=== PATIENT | female | born 1950 | race Caucasian/White ===

== ENCOUNTER 2017-06-10 17:44 | Emergency (ER) | payer MEDICARE, OTHER ==
[2017-06-10] MEDS ORDERED: ACETAMINOPHEN 325 MG TABLET PO STA (18:09)
--- NOTE | 2017-06-10 18:12 | ED Physician Documentation ---
PD HPI LOWER EXT INJURY - Stated complaint Stated Complaint: GLF - Chief complaint Chief Complaint: Ext Problem - History obtained from History obtained from: Patient, Family - History of Present Illness PD HPI LOW EXT INJURY LOCATION: Other (She was up a few steps on a step stool, twisted to her right and felt to her right and felt a pop in her left knee and has hip and knee pain. No other injuries. No head or neck injury. She is unable to walk or bear weight.) Review of Systems Ten Systems: 10 systems reviewed and negative Constitutional: reports: Reviewed and negative Throat: reports: Reviewed and negative Cardiac: reports: Reviewed and negative Respiratory: reports: Reviewed and negative PD PAST MEDICAL HISTORY - Past Medical History Cardiovascular: None Respiratory: None Neuro: None Endocrine/Autoimmune: None GI: None PACKING LINE WORKER: None : None HEENT: None Psych: None Musculoskeletal: Osteoarthritis Derm: None - Past Surgical History Past Surgical History: Yes General: Cholecystectomy Ortho: Other /PACKING LINE WORKER: Hysterectomy Derm: Other - Present Medications Home Medications: Ambulatory Orders Medication Instructions Recorded Confirmed Omeprazole [Prilosec] 20 mg ORAL DAILY 06/14/15 06/10/17 Aspirin [Aspirin EC] 1 tab PO DAILY 06/10/17 06/10/17 HYDROcod/ACETAM 5/325 [[place] 5/325] 1 - 2 ea PO Q6H PRN #15 tablet 06/10/17 - Allergies Allergies/Adverse Reactions: Allergies Allergy/AdvReac Type Severity Reaction Status Date / Time acetaminophen [From Percocet] AdvReac Intermediate Nausea Verified 06/10/17 17: 54 oxycodone HCl * AdvReac Intermediate Nausea Verified 06/10/17 17:54 [From Percocet] - Living Situation Living Situation: reports: With spouse/s.o. - Social History Does the pt smoke?: No Smoking Status: Never smoker Does the pt drink ETOH?: Yes Does the pt have substance abuse?: No - Family History Family history: reports: Non contributory - Immunizations Immunizations are current?: Yes - POLST Patient has POLST: Yes PD ED PE NORMAL - Vitals Vital signs reviewed: Yes - General General: Alert and oriented X 3, No acute distress - HEENT HEENT: PERRL, EOMI - Neck Neck: Supple, no meningeal sign, No bony TTP - Cardiac Cardiac: RRR, No murmur - Respiratory Respiratory: No respiratory distress, Clear bilaterally - Abdomen Abdomen: Soft, Non tender - Back Back: No CVA TTP, No spinal TTP - Derm Derm: Normal color, Warm and dry - Extremities Extremities: Other (Left lower extremity is mildly tender to the lateral part of the hip and she has pain with external rotation but not internal rotation. She points to the lateral hip, not the inguinal ligament as the site of the pain. No focal knee tenderness on the left and no effusion but she does have a lot of knee pain with grind testing and ACL testing.) - Neuro Neuro: Alert and oriented X 3, Normal speech - Psych Psych: Normal mood, Normal affect Results - Vitals Vitals: Vital Signs - 24 hr 06/10/17 06/10/17 17:48 19:51 Temperature 36.6 C Heart Rate 59 L 51 L Respiratory 16 16 Rate Blood Pressure 155/88 H 121/68 O2 Saturation 100 94 Oxygen O2 Source Room air - Rads (name of study) Xrays L hip and knee Radiology: EMP read contemporaneously (negative) PD MEDICAL DECISION MAKING - ED course ED course: 66-year-old woman with hip and knee pain after a fall, somewhat inconsistent with a hip fracture, x-rays were negative, but given persistent pain this was followed with a CT which was also negative. She was able to walk and bear weight with a walker. Departure - Departure Disposition: 01 Home, Self Care Clinical Impression: Left knee sprain Qualifiers: Encounter type: initial encounter Involved ligament of knee: unspecified ligament Qualified Code(s): S83.92XA - Sprain of unspecified site of left knee, initial encounter Sprain of left hip Qualifiers: Encounter type: initial encounter Qualified Code(s): S73.102A - Unspecified sprain of left hip, initial encounter Condition: Good Record reviewed to determine appropriate education?: Yes Instructions: ED Meniscal Injury Knee Poss Prescriptions: HYDROcod/ACETAM 5/325 [[place] 5/325] 1 - 2 ea PO Q6H PRN #15 tablet PRN Reason: Pain Comments: Recheck with your physician within a week if still hurting, consider other advanced imaging or repeat x-rays if not improved. Do not drink or drive while taking narcotic pain medication. Note that many narcotic pain relievers also contain Tylenol/acetaminophen. Please ensure that your total dose of acetaminophen from all sources does not exceed 3 g (3000 mg) per day. You may get constipated while on this medication. Take a stool softener such as Colace twice a day while you are on it. Also add an [id number]-ylf-[id number] laxative such as senna or MiraLAX on any day that you do not have a bowel movement. If you received a narcotic pain medication or sedative while in the emergency department, do not drive for the next 24 hours. Your blood pressure was elevated today on check into the emergency department. This does not mean that you have hypertension, it is a common phenomenon to come to the emergency department and have elevated blood pressure. I recommend that she see her primary care physician within the week to have it rechecked when you are feeling better.
[2017-06-10] MEDS ORDERED: ACETAMINOPHEN 325 MG TABLET PO ONE (18:16)
[2017-06-10] MEDS ORDERED: HYDROmorphone 1 MG/ML SYRINGE IM STA (19:05)
[2017-06-10] MEDS ORDERED: HYDROmorphone 1 MG/ML SYRINGE ONE (19:15)
--- NOTE | 2017-06-10 19:16 | XRAY Preliminary Report ---
Exam: XR Knee 4 View LT IMPRESSION: 1. No evidence for acute fracture. 2. Minimal knee joint effusion. 3. There appears to be medial knee and lower leg soft tissue varices. [facility] SITE ID: [id number]
--- NOTE | 2017-06-10 19:18 | XRAY Preliminary Report ---
Exam: XR Hip w/Pelvis 2-3V LT IMPRESSION: 1. No evidence for acute fracture 2. Bilateral hips appear within normal limits. No dislocation. See above. [facility] SITE ID: [id number]
--- NOTE | 2017-06-10 19:18 | XRAY Report ---
EXAM: LEFT KNEE RADIOGRAPHY EXAM DATE: 06/10/2017 06:44 PM. CLINICAL HISTORY: Left hip and knee pain after fall COMPARISON: None. TECHNIQUE: 4 views. FINDINGS: Bones: Normal. No fractures or bone lesions. Joints: No subluxation or significant degenerative joint disease. Minimal knee joint effusion. Soft Tissues: There appears to be medial knee and lower leg soft tissue varices. IMPRESSION: 1. No evidence for acute fracture. 2. Minimal knee joint effusion. 3. There appears to be medial knee and lower leg soft tissue varices. [facility] Referring Provider Line: [phone] SITE ID: [id number]
--- NOTE | 2017-06-10 19:21 | XRAY Report ---
EXAM: LEFT HIP AND PELVIS RADIOGRAPHY EXAM DATE: 06/10/2017 06:44 PM. HISTORY: Hip/knee pain after fall COMPARISONS: None. TECHNIQUE: 1 view of the pelvis and 1 view of the hip. FINDINGS: Bones: Normal. No fracture or bone lesion. Joints: Bilateral hips appear within normal limits. No dislocation. Pubic osteitis suspected. Degener ative changes in the lower lumbar spine. Soft Tissues: Unremarkable. IMPRESSION: 1. No evidence for acute fracture 2. Bilateral hips appear within normal limits. No dislocation. See above. [facility] Referring Provider Line: [phone] SITE ID: [id number]
[2017-06-10 19:53] VITALS: BP 121/68
--- NOTE | 2017-06-10 20:56 | CT Preliminary Report ---
Exam: CT Lower Extremity Left W/O IMPRESSION: 1. No evidence of left hip fracture or destructive bone lesion. 2. Mild degenerative changes. [facility] SITE ID: [id number]
--- NOTE | 2017-06-10 20:58 | CT Report ---
EXAM: LEFT HIP CT WITHOUT CONTRAST EXAM DATE: 06/10/2017 08:16 PM. CLINICAL HISTORY: Hip pain despite neg xrays. COMPARISON: 06/10/2017 radiographs. TECHNIQUE: Thin-section axial images were acquired of the hip without contrast. Post-processing: [place] and sagittal reformats. Other: None. In accordance with CT protocol optimization, one or more of the following dose reduction techniques w ere utilized for this exam: automated exposure control, adjustment of mA and/or KV based on patient s ize, or use of iterative reconstructive technique. FINDINGS: Bones: No fracture or bone lesion. Joints: Mild joint space narrowing posteriorly. There is minimal spurring along the margins of the fe moral head. No loose bodies. No joint effusion. Normal alignment. Pubic symphyseal degenerative stephens es. Musculature: Normal. No fatty atrophy. Other: The visualized intraperitoneal structures are unremarkable. IMPRESSION: 1. No evidence of left hip fracture or destructive bone lesion. 2. Mild degenerative changes. [facility] Referring Provider Line: [phone] SITE ID: [id number]
[2017-06-10] MEDS ORDERED: HYDROcod/ACET 5/325 Prepack 6 PO STA (21:00)
[2017-06-10] MEDS ORDERED: HYDROcod/ACET 5/325 Prepack 6 PO ONE (21:07)
== END 2017-06-10 21:26 | disposition home or self-care (01) ==
LOC: ED 17:44
DX: S83.92XA Sprain of unspecified site of left knee, initial encounter (principal); S73.102A Unspecified sprain of left hip, initial encounter; W11.XXXA Fall on and from ladder, initial encounter; X50.9XXA Other and unspecified overexertion or strenuous movements or postures, initial encounter; Y93.89 Activity, other specified; R03.0 Elevated blood-pressure reading, without diagnosis of hypertension
CPT/HCPCS: 73502; 73564; 73700; 96372; 99283; A9270; J1170

== ENCOUNTER 2017-07-18 08:37 | Outpatient (CLI) | payer MEDICARE, OTHER ==
--- NOTE | 2017-07-19 12:35 | Mammography Report ---
DIGITAL SCREENING MAMMOGRAM: 07/18/2017 CLINICAL INDICATION: A 67-year-old for screening. COMPARISON: 06/2016, 04/2015, 03/2010 TECHNIQUE: Routine CC and MLO projections were obtained of the breasts. FINDINGS: Scattered fibroglandular tissue is present within the breasts. There are no dominant ayaka s, suspicious microcalcifications, or secondary signs of malignancy. In comparison to the previous st udies, there are no significant changes. ASSESSMENT: NO MAMMOGRAPHIC EVIDENCE OF MALIGNANCY. NO SIGNIFICANT INTERVAL CHANGES. RECOMMENDATION: Screening mammography is recommended annually. BIRADS category 1 - negative. STANDARD QUALIFYING STATEMENTS 1. This examination was reviewed with the aid of Computed-Aided Detection (CAD). 2. A negative or benign imaging report should not delay biopsy if clinically suspicious findings are present. Consider surgical consultation if warranted. More than 5% of cancers are not identified by i maging. 3. Dense breasts may obscure an underlying neoplasm. JOB #: [id number] EXT JOB #:[id number]
== END 2017-07-18 08:38 | disposition home or self-care (01) ==
LOC: DI.S 08:37
PROVIDERS: ATTEND Registered Nurse
DX: Z12.31 Encounter for screening mammogram for malignant neoplasm of breast (principal)
CPT/HCPCS: 77067

== ENCOUNTER 2017-11-01 09:28 | Outpatient (CLI) | payer MEDICARE, OTHER ==
--- NOTE | 2017-11-02 08:59 | Nuclear Medicine Report ---
EXAM: SINGLE-ISOTOPE EXERCISE STRESS TEST. SINGLE-ISOTOPE AND ONE-DAY REST/STRESS MYOCARDIAL PERFUSION SCAN S WITH TOMOGRAPHIC IMAGING, QUANTITATIVE ANALYSIS, WALL MOTION ANALYSIS AND CALCULATION OF EJECTION F RACTION. EXAM DATE: 11/01/2017 02:55 PM. CLINICAL HISTORY: FATIGUE, FAM HX OF CAD, PE. COMPARISON: None available. TECHNIQUE: A rest myocardial perfusion scan was done with tomography after the intravenous administration of 9.4 mCi Tc-99m sestamibi. After an appropriate delay, a treadmill exercise stress was performed according to department protoco l. The patient exercised for 7 minutes and 30 seconds. The maximum heart rate was 144 bpm, which was 95% of the maximum predicted heart rate of 151 bpm. At approximately peak heart rate, 42.4 mCi of Tc- 99m sestamibi was injected for stress myocardial perfusion scan. Motion correction was applied when a ppropriate. Gated tomographic images were obtained for wall motion analysis and computation of left ventricular e jection fraction. FINDINGS: No fixed or reversible perfusion defects are evident. Wall motion analysis demonstrates no focal wall motion abnormality The left ventricular end-diastolic volume is 65 cc. The left ventricular end-systolic volume is 21 cc . The left ventricular ejection fraction is calculated to be 67%. IMPRESSION: 1. No scintigraphic findings to indicate myocardial ischemia. Negative for infarct. 2. Normal left ventricular ejection fraction of 67%. 3. Normal segmental and global wall motion. 4. Normal left ventricular cavity size, no change with stress. [facility] Referring Provider Line: [phone] SITE ID: [id number]
--- NOTE | 2017-11-02 13:27 | CARDIAC PROCEDURE NOTE ---
DATE OF SERVICE: 11/01/2017 DATE OF PROCEDURE: 11/01/2017. PRIMARY CARE PROVIDER: JASMYNE Conde PROCEDURE: Myocardial perfusion treadmill. PROCEDURE SYMPTOMS: Fatigue and chest pain. CARDIAC RISK FACTORS include age and family history. No previous cardiac history. CURRENT SYMPTOMOTOLOGY: None. CLINICAL HISTORY: A 67-year-old female without known coronary artery disease. Initial resting vital signs: Blood pressure 144/82, heart rate 62, height 61 inches, weight 167 pounds, BMI 31.25. PROCEDURE AND FINDINGS: Patient identity and date verified, consent signed. The patient performed treadmill exercise using a Timothy protocol, completing 7 minutes 45 seconds, and completing an estimated workload of 7.6 metabolic equivalents. At peak exercise, a Cardiolite radioactive tracer was injected intravenously, and the patient continued to exercise at stage II for another minute. Maximal blood pressure was 176/70 with a heart rate of 144 beats per minute or 95% of maximum predicted heart rate for age. Blood pressure response to exercise was within normal limits. The patient stopped because she was tiring. The resting ECG demonstrated normal sinus rhythm with no abnormalities. Maximum ST segment depression was less than 0.5 mm and upsloping. Ectopy consisted of several seconds of unifocal PVCs in 1 couplet approximately 4 minutes into exercise. There was also a rare PAC. FINAL IMPRESSION 1. Negative stress electrocardiogram for ischemia by electrocardiographic criteria. 2. Negative stress test clinically for angina. 3. Several unifocal PVCs in 1 couplet 4 minutes into exercise. TD: 11/01/2017 20:38 [facility]
[2017-11-06 09:02] VITALS: BP 122/84
== END 2017-11-01 09:29 | disposition home or self-care (01) ==
LOC: DI 09:28
PROVIDERS: ATTEND Registered Nurse
DX: R53.83 Other fatigue (principal); I10 Essential (primary) hypertension; Z82.49 Family history of ischemic heart disease and other diseases of the circulatory system; I49.3 Ventricular premature depolarization
CPT/HCPCS: 78452; 93017; A9500

== ENCOUNTER 2019-04-16 10:01 | Outpatient (CLI) | payer MEDICARE, OTHER ==
--- NOTE | 2019-04-16 10:36 | XRAY Report ---
Reason: PT NO SHOWED APPT [id number] ([id number] CC) Procedure Date: 04/16/2019 Accession Number: [id number] / [id number] Procedure: XR - Hand 3 View BILAT CPT Code: FULL RESULT: EXAMS: 1. Right Hand Radiography 2. Left Hand Radiography EXAM DATE: 04/16/2019 10:13 AM. CLINICAL HISTORY: Bilateral hand pain COMPARISON: None. TECHNIQUE: 3 views each hand. FINDINGS: Right: Bones: Normal. No fractures or bone lesions. Joints: Mild-moderate carpal-first metacarpal joint osteoarthritis. Osteoarthritis of the third DIP joint. Soft Tissues: Normal. No soft tissue swelling. Left: Bones: Normal. No fractures or bone lesions. Joints: Moderately severe osteoarthritis of the carpal-first metacarpal joint with mild lateral subluxation of the first metatarsal. Soft Tissues: Normal. No soft tissue swelling. IMPRESSION: 1. No acute finding. 2. The primary finding is bilateral carpal-first metacarpal joint osteoarthritis, more severe in the left wrist. [facility]
== END 2019-04-16 10:02 | disposition home or self-care (01) ==
LOC: DI 10:01
PROVIDERS: ATTEND Nurse Practitioner Family
DX: M18.0 Bilateral primary osteoarthritis of first carpometacarpal joints (principal); M19.041 Primary osteoarthritis, right hand

== ENCOUNTER 2020-11-29 10:53 | Outpatient (CLI) | payer MEDICARE, OTHER ==
--- NOTE | 2020-11-29 14:27 | XRAY Report ---
PROCEDURE: Knee 2 View RT INDICATIONS: PAIN IN RIGHT KNEE TECHNIQUE: 3 views of the right knee(s) were acquired. COMPARISON: None. FINDINGS: Bones: No fractures or dislocations. Mild to moderate tricompartmental osteophyte is is seen more p rominent in medial femoral tibial compartment. No suspicious bony lesions. Soft tissues: Moderate suprapatellar joint effusion is seen. No suspicious soft tissue calcification s. IMPRESSION: Mild to moderate tricompartment osteoarthritis more prominent in medial femoral tibial c ompartment. Moderate suprapatellar joint effusion. No fracture or dislocation. Reviewed by: Andreas Herrera MD on 11/29/2020 2:25 PM PST Approved by: Andreas Herrera MD on 11/29/2020 2:25 PM PST Station ID: [id number]
== END 2020-11-29 10:54 | disposition home or self-care (01) ==
LOC: DI.S 10:53
PROVIDERS: ATTEND Registered Nurse
DX: M17.11 Unilateral primary osteoarthritis, right knee (principal)

== ENCOUNTER 2022-05-01 07:02 | Emergency (ER) | payer MEDICARE, OTHER ==
[2022-05-01 07:13] VITALS: BP 183/88
--- NOTE | 2022-05-01 07:33 | ED Physician Documentation ---
PD HPI ABD PAIN - Stated complaint Stated Complaint: UPPER ABD PX - Chief complaint Chief Complaint: Abd Pain - History obtained from History obtained from: Patient, Family - History of Present Illness Timing - onset: Today Timing - duration: Minutes (20) Timing - details: Abrupt onset Pain level max: 10 Pain level now: 0 Quality: Aching, Sharp, Pain Location: Epigastric Associated symptoms: No: Fever, Nausea, Vomiting, Hematemesis, Diarrhea, Constipation, Melena, Hematochezia, Dysuria, Hematuria, Chest pain Recently seen: Not recently seen - Additional information Additional information: Patient is a 71-year-old female with a history of gastroesophageal reflux. She states that she took her Prilosec this morning and then drank her coffee. After that she developed abdominal pain. Lasted for about 20 minutes and has since resolved. She currently feels normal now. It was nonradiating. No chest pain. No shortness of breath. Nothing made it better or worse. Feels similar to her prior episodes of reflux. Did not eat any food this morning Review of Systems Constitutional: denies: Fever, Chills Ears: denies: Ear pain Nose: denies: Rhinorrhea / runny nose, Congestion Throat: denies: Sore throat Cardiac: denies: Palpitations, Calf pain Respiratory: denies: Dyspnea, Cough GI: denies: Nausea, Vomiting, Diarrhea Skin: denies: Rash Musculoskeletal: denies: Neck pain, Back pain Neurologic: denies: Headache PD PAST MEDICAL HISTORY - Past Medical History Cardiovascular: None Respiratory: None Endocrine/Autoimmune: None GI: None HVAC JOURNEYMAN: None : None HEENT: None Psych: None Musculoskeletal: Osteoarthritis Derm: None - Past Surgical History Past Surgical History: Yes General: Cholecystectomy Ortho: Other /HVAC JOURNEYMAN: Hysterectomy Derm: Other - Present Medications Home Medications: Ambulatory Orders Medication Instructions Recorded Confirmed Omeprazole [Prilosec] 20 mg ORAL DAILY 06/14/15 05/01/22 Aspirin [Aspirin EC] 1 tab PO DAILY 06/10/17 05/01/22 HYDROcod/ACETAM 5/325 [[place] 5/325] 1 - 2 ea PO Q6H PRN #15 tablet 06/10/17 05/01/22 - Allergies Allergies/Adverse Reactions: Allergies Allergy/AdvReac Type Severity Reaction Status Date / Time acetaminophen [From Percocet] AdvReac Intermediate Nausea Verified 06/10/17 17:54 oxycodone HCl * AdvReac Intermediate Nausea Verified 06/10/17 17:54 [From Percocet] - Social History Does the pt smoke?: No Smoking Status: Never smoker Does the pt drink ETOH?: Yes Does the pt have substance abuse?: No - Immunizations Immunizations are current?: Yes - POLST Patient has POLST: Yes PD ED PE NORMAL - Vitals Vital signs reviewed: Yes - General General: Alert and oriented X 3, No acute distress, Well developed/nourished - HEENT HEENT: Moist mucous membranes - Neck Neck: Supple, no meningeal sign - Cardiac Cardiac: RRR - Respiratory Respiratory: No respiratory distress, Clear bilaterally - Abdomen Abdomen: Soft, Non tender, Non distended - Back Back: No CVA TTP, No spinal TTP - Derm Derm: Warm and dry - Extremities Extremities: No edema, No calf tenderness / cord - Neuro Neuro: Alert and oriented X 3 - Psych Psych: Normal mood, Normal affect Results - Vitals Vitals: Vital Signs - 24 hr 05/01/22 07:10 Temperature 36.8 C Heart Rate 65 Respiratory 18 Rate Blood Pressure 183/88 H O2 Saturation 99 Oxygen O2 Source Room air - EKG (time done) 0734 Rate: Rate (enter#) (55) Rhythm: NSR [place]: Normal Intervals: Normal RI QRS: Normal Ischemia: Normal ST segments - Labs Labs: Laboratory Tests 05/01/22 05/01/22 05/01/22 07:50 07:50 07:50 WBC 6.8 RBC 4.06 L Hgb 13.5 Hct 38.7 MCV 95.3 MCH 33.3 H MCHC 34.9 RDW 12.3 Plt Count 235 MPV 9.2 Neut # (Auto) 4.9 Lymph # (Auto) 1.3 L [place] # (Auto) 0.4 Eos # (Auto) 0.1 Baso # (Auto) 0.0 Absolute Nucleated RBC 0.00 Nucleated RBC % 0.0 Sodium 137 Potassium 3.9 Chloride 99 L Carbon Dioxide 29 Anion Gap 9.0 BUN 19 Creatinine 0.5 Estimated GFR (MDRD) 121 Glucose 127 H Calcium 9.1 Total Bilirubin 0.4 AST 62 H ALT 37 Alkaline Phosphatase 54 Troponin I High Sens 8.3 Total Protein 6.5 L Albumin 4.0 Globulin 2.5 Albumin/Globulin Ratio 1.6 Lipase 43 - Rads (name of study) chest xray Radiology: Final report received, EMP read contemporaneously, See rad report PD MEDICAL DECISION MAKING - ED course Complexity details: reviewed results, re-evaluated patient, considered differential (No ST elevation MS, no aortic dissection, no PE, no tension pneumothorax, no aortic aneurysm), d/w patient ED course: Patient with epigastric abdominal pain after drinking coffee on an empty stomach this morning. Resolved on its own. No evidence of acute coronary syndrome, pulmonary embolus, pneumothorax, hemothorax. Does have a sclerotic region in the right humeral head, she will follow-up with her doctor for this. No pain. We will continue her gastritis/GERD medication at home and have her follow-up with her doctor for further care. Patient fully asymptomatic throughout the emergency department stay. Patient counseled regarding signs and symptoms for which I believe and urgent re-evaluation would be necessary. Patient with good understanding of and agreement to plan and is comfortable going home at this time This document was made in part using voice recognition software. While efforts are made to proofread this document, sound alike and grammatical errors may occur. IMPRESSION: No acute pulmonary process. Sclerotic lesion within the right humeral head without priors available for comparison. Disc is suspicious for an chondroma. However, if there is a known primary malignancy, further evaluation with bone scan is recommended as metastatic disease cannot be excluded. Additionally, if pain is present within this region, further evaluation with bone scan or MRI is recomm ended. Otherwise, 3-6 month interval follow-up with shoulder x-rays are recommended. Departure - Departure Disposition: 01 Home, Self Care Clinical Impression: Abdominal pain Qualifiers: Abdominal location: epigastric Qualified Code(s): R10.13 - Epigastric pain Condition: Good Instructions: ED Abdominal Pain Female Non-Specific Abdominal Pain Follow-Up: Kelin Mcelroy ARNP [Primary Care Provider] - Within 1 week Comments: Please follow-up with your doctor for further care. Your x-ray, EKG and laboratory testing did not show any acute abnormalities today. There is a sclerotic lesion in your right humeral head, you should follow-up with your doctor for follow-up of this. The report is below. Take this with you to your doctor's appointment. IMPRESSION: No acute pulmonary process. Sclerotic lesion within the right humeral head without priors available for comparison. Disc is suspicious for an chondroma. However, if there is a known primary malignancy, further evaluation with bone scan is recommended as metastatic disease cannot be excluded. Additionally, if pain is present within this region, further evaluation with bone scan or MRI is recommended. Otherwise, 3-6 month interval follow-up with shoulder x-rays are recommended. Discharge Date/Time: 05/01/22 09:23
[2022-05-01 07:58] LABS: BASOPHILS % (AUTO) 0.6 %; EOSINOPHILS # (AUTO) 0.1 10^3/uL (0.0-0.7); EOSINOPHILS % (AUTO) 1.8 %; HCT - HEMATOCRIT 38.7 % (37.0-47.0); HGB - HEMOGLOBIN 13.5 g/dL (12.0-16.0); LYMPHOCYTES # (AUTO) 1.3 10^3/uL (1.5-3.5); LYMPHOCYTES % (AUTO) 18.6 %; MEAN CORPUSCULAR HEMOGLOBIN 33.3 pg (27.0-31.0); MEAN CORPUSCULAR HGB CONC 34.9 g/dL (32.0-36.0); MEAN CORPUSCULAR VOLUME 95.3 fL (81.0-99.0); MEAN PLATELET VOLUME 9.2 fL (7.9-10.8); MONOCYTES # (AUTO) 0.4 10^3/uL (0.0-1.0); MONOCYTES % (AUTO) 6.4 %; NEUTROPHILS # (AUTO) 4.9 10^3/uL (1.5-6.6); NEUTROPHILS % (AUTO) 72.3 %; PLT - PLATELET COUNT 235 10^3/uL (130-450); RED BLOOD COUNT 4.06 10^6/uL (4.20-5.40); RED CELL DISTRIBUTION WIDTH 12.3 % (12.0-15.0); WHITE BLOOD COUNT 6.8 x10^3/uL (4.8-10.8)
[2022-05-01 08:16] LABS: ALBUMIN/GLOBULIN RATIO 1.6 (1.0-2.2); BILIRUBIN,TOTAL 0.4 mg/dL (0.2-1.0); CALCIUM 9.1 mg/dL (8.5-10.3); CREATININE 0.5 mg/dL (0.4-1.0); POTASSIUM 3.9 mmol/L (3.5-5.0); TOTAL PROTEIN 6.5 g/dL (6.7-8.2)
--- NOTE | 2022-05-01 08:28 | XRAY Report ---
PROCEDURE: Chest 1 View X-Ray INDICATIONS: Chest Pain TECHNIQUE: One view of the chest was acquired. COMPARISON: None FINDINGS: Surgical changes and devices: None. Lungs and pleura: No pleural effusions or pneumothorax. Lungs are clear. Mediastinum: Mediastinal contours appear normal. Heart size is normal. Bones and chest wall: Sclerotic lesion is noted, within the partially visualized right humeral head. No priors are available for comparison. Overlying soft tissues appear unremarkable. IMPRESSION: No acute pulmonary process. Sclerotic lesion within the right humeral head without priors available for comparison. Disc is suspi cious for an chondroma. However, if there is a known primary malignancy, further evaluation with bone scan is recommended as metastatic disease cannot be excluded. Additionally, if pain is present withi n this region, further evaluation with bone scan or MRI is recommended. Otherwise, 3-6 month interval follow-up with shoulder x-rays are recommended. Reviewed by: Talya Albert MD on 05/01/2022 8:27 AM PDT Approved by: Talya Albert MD on 05/01/2022 8:27 AM PDT Station ID: [id number]
== END 2022-05-01 09:23 | disposition home or self-care (01) ==
LOC: ED 07:02
DX: R10.13 Epigastric pain (principal)
CPT/HCPCS: 36415; 80053; 83690; 84484; 85025; 93005; 99284

== ENCOUNTER → 2022-05-01 | Outpatient (CLI) | payer MEDICARE, OTHER | END | disposition EMS.NT | LOC: EMS 06:18 | DX: R10.84 Generalized abdominal pain (principal) ==

== ENCOUNTER 2022-06-07 08:41 | Outpatient (CLI) | payer MEDICARE, OTHER ==
--- NOTE | 2022-06-08 08:31 | Mammography Report ---
BILATERAL DIGITAL SCREENING MAMMOGRAM 3D/2D: 06/07/2022 CLINICAL: Routine screening. Family history of breast cancer. Comparison is made to exams dated: 07/18/2017 mammogram and 07/04/2016 mammogram - [facility]. There are scattered fibroglandular elements in both breasts. No significant masses, calcifications, or other findings are seen in either breast. There has been no significant interval change. IMPRESSION: NEGATIVE There is no mammographic evidence of malignancy. A 1 year screening mammogram is recommended. Based on the Tyrer Cuzick model (a risk assessment model) the patients lifetime risk is 5.0% and her 10 year risk is 4.2%. According to the ACR, ACS, and NCCN guidelines, an annual breast MRI exam bert g with mammogram is recommended if the patients lifetime risk is 20% or greater. This exam was interpreted at Station ID: [id number]. NOTE: For mammograms, a report in lay terms will be sent to the patient. Approximately 15% of breast malignancies will not be visualized mammographically. In the management of a palpable breast mass, a negative mammogram must not discourage biopsy of a clinically suspicious lesion. Electronically Signed By: Jamaal [email or web address]:06/07/2022 16:02:33 ACR BI-RADS Category 1: Negative 3341F B -Scattered fibroglandular 1 Mammogram [id number] 1 year screening B
== END 2022-06-07 08:42 | disposition home or self-care (01) ==
LOC: DI.S 08:41
PROVIDERS: ATTEND Registered Nurse
DX: Z12.31 Encounter for screening mammogram for malignant neoplasm of breast (principal); Z80.3 Family history of malignant neoplasm of breast

== ENCOUNTER 2022-09-05 07:16 | Inpatient (IN) | payer MEDICARE, OTHER ==
--- NOTE | 2022-09-05 07:22 | ED Physician Documentation ---
PD HPI NVD - Stated complaint Stated Complaint: N/V/D - History obtained from History obtained from: Patient - History of Present Illness Timing - onset: How many days ago (4) Timing - duration: Days (4) Timing - details: Abrupt onset, Still present Associated symptoms: Abdominal pain (intermittent cramping), Dizzy (lightheaded "whoozy" feeling the past day.), Loss of appetite. No: Fever, Near syncope / syncope Contributing factors: No: Sick contact, Bad food, Recent antibiotics, Alcohol use, Diabetes Improved by: No: Vomiting Worsened by: Eating Similar symptoms before: Has not had sx before Recently seen: Clinic (Seen at walk-in yesterday with prescription for Zofran and presumed viral gastroenteritis. Still vomiting despite these.) Review of Systems Constitutional: reports: Chills, Myalgias Nose: denies: Rhinorrhea / runny nose, Congestion Throat: denies: Sore throat Respiratory: denies: Cough GI: reports: Abdominal Pain (intermittent cramping.), Nausea, Vomiting, Diarrhea (for 2-3 days, not the past day) Neurologic: reports: Generalized weakness, Confused (feeling somewhat confused at times.). denies: Syncope, Head injury PD PAST MEDICAL HISTORY - Past Medical History Cardiovascular: None Respiratory: None Endocrine/Autoimmune: None GI: None PROCESSING REP: None : None HEENT: None Psych: None Musculoskeletal: Osteoarthritis Derm: None - Past Surgical History Past Surgical History: Yes General: Cholecystectomy Ortho: Other /PROCESSING REP: Hysterectomy Derm: Other - Present Medications Home Medications: Ambulatory Orders Medication Instructions Recorded Confirmed Omeprazole [Prilosec] 20 mg PO DAILY 06/14/15 09/05/22 Aspirin [Aspirin EC] 81 mg PO DAILY 06/10/17 09/05/22 Escitalopram [Lexapro] 10 mg PO DAILY 09/05/22 09/05/22 Ondansetron Odt [Zofran Odt] 4 mg SL Q8H PRN 09/05/22 09/05/22 hydroCHLOROthiazide [Hydrodiuril] 25 mg PO DAILY 09/05/22 09/05/22 - Allergies Allergies/Adverse Reactions: Allergies Allergy/AdvReac Type Severity Reaction Status Date / Time oxycodone HCl * AdvReac Intermediate Nausea Verified 06/10/17 17:54 [From Percocet] omeprazole [From Prilosec] AdvReac Nausea Verified 09/05/22 07:25 - Social History Does the pt smoke?: No Smoking Status: Never smoker Does the pt drink ETOH?: Yes Does the pt have substance abuse?: No - Immunizations Immunizations are current?: Yes - POLST Patient has POLST: Yes PD ED PE NORMAL - Vitals Vital signs reviewed: Yes - General General: Alert and oriented X 3, Well developed/nourished, Other (holding emesis bag) - HEENT HEENT: PERRL (nonicteric), Pharynx benign. No: Moist mucous membranes - Neck Neck: Supple, no meningeal sign, No adenopathy - Cardiac Cardiac: RRR, No murmur - Respiratory Respiratory: Clear bilaterally - Abdomen Abdomen: Soft, Non distended, No organomegaly, Other (no focal tenderness). No: Normal bowel sounds (diminished) - Back Back: No CVA TTP - Derm Derm: Normal color, Warm and dry - Extremities Extremities: No edema, No calf tenderness / cord - Neuro Neuro: Alert and oriented X 3, No motor deficit, Normal speech Eye Opening: Spontaneous Motor: Obeys Commands Verbal: Oriented GCS Score: 15 Results - Vitals Vitals: Vital Signs - 24 hr 09/05/22 09/05/22 09/05/22 07:26 09:27 11:00 Temperature 37.0 C 36.6 C Heart Rate 63 69 87 Respiratory 19 10 L 16 Rate Blood Pressure 154/80 H 166/87 H 135/85 H O2 Saturation 99 99 94 09/05/22 09/05/22 13:00 15:00 Temperature Heart Rate 57 L 60 Respiratory 16 12 Rate Blood Pressure 174/78 H 184/81 H O2 Saturation 98 99 Oxygen O2 Source Room air - Labs Labs: Laboratory Tests 09/05/22 09/05/22 09/05/22 07:56 07:56 09:15 WBC 5.0 RBC 4.51 Hgb 14.5 Hct 39.5 MCV 87.6 MCH 32.2 H MCHC 36.7 H RDW 11.3 L Plt Count 260 MPV 8.6 Neut # (Auto) 3.6 Lymph # (Auto) 0.8 L Towner # (Auto) 0.5 Eos # (Auto) 0.0 Baso # (Auto) 0.0 Absolute Nucleated RBC 0.00 Nucleated RBC % 0.0 Sodium 117 L* Potassium 3.0 L Chloride 82 L Carbon Dioxide 21 Anion Gap 14.0 H BUN 15 Creatinine 0.5 Estimated GFR (MDRD) 121 Glucose 105 H Calcium 8.8 Magnesium 1.7 Total Bilirubin 1.1 H AST 30 ALT 32 Alkaline Phosphatase 56 Total Protein 7.1 Albumin 4.4 Globulin 2.7 Albumin/Globulin Ratio 1.6 Lipase 40 Nasal Adenovirus (PCR) NOT DETECTED Nasal B. parapertussis DNA (PCR) NOT DETECTED Nasal Coronavir 229E PCR NOT DETECTED Nasal Coronavir HKU1 PCR NOT DETECTED Nasal Coronavir NL63 PCR NOT DETECTED Nasal Coronavir OC43 PCR NOT DETECTED Nasal Enterovir/Rhinovir PCR NOT DETECTED Nasal Influenza B PCR NOT DETECTED Nasal Influenza A PCR NOT DETECTED Nasal Parainfluen 1 PCR NOT DETECTED Nasal Parainfluen 2 PCR NOT DETECTED Nasal Parainfluen 3 PCR NOT DETECTED Nasal Parainfluen 4 PCR NOT DETECTED Nasal RSV (PCR) NOT DETECTED Nasal B.pertussis DNA PCR NOT DETECTED Nasal C.pneumoniae (PCR) NOT DETECTED Adrian Human Metapneumo PCR NOT DETECTED Nasal M.pneumoniae (PCR) NOT DETECTED Nasal SARS-CoV-2 (PCR) NOT DETECTED 09/05/22 09/05/22 13:00 17:08 WBC RBC Hgb Hct MCV MCH MCHC RDW Plt Count MPV Neut # (Auto) Lymph # (Auto) Towner # (Auto) Eos # (Auto) Baso # (Auto) Absolute Nucleated RBC Nucleated RBC % Sodium 119 L* 121 L Potassium 3.3 L 3.7 Chloride 86 L 91 L Carbon Dioxide 21 15 L Anion Gap 12.0 15.0 H BUN 10 9 Creatinine 0.4 0.5 Estimated GFR (MDRD) 156 121 Glucose 109 H 106 H Calcium 8.2 L 8.2 L Magnesium Total Bilirubin AST ALT Alkaline Phosphatase Total Protein Albumin Globulin Albumin/Globulin Ratio Lipase Nasal Adenovirus (PCR) Nasal B. parapertussis DNA (PCR) Nasal Coronavir 229E PCR Nasal Coronavir HKU1 PCR Nasal Coronavir NL63 PCR Nasal Coronavir OC43 PCR Nasal Enterovir/Rhinovir PCR Nasal Influenza B PCR Nasal Influenza A PCR Nasal Parainfluen 1 PCR Nasal Parainfluen 2 PCR Nasal Parainfluen 3 PCR Nasal Parainfluen 4 PCR Nasal RSV (PCR) Nasal B.pertussis DNA PCR Nasal C.pneumoniae (PCR) Adrian Human Metapneumo PCR Nasal M.pneumoniae (PCR) Nasal SARS-CoV-2 (PCR) PD MEDICAL DECISION MAKING - ED course Complexity details: reviewed results (Electrolytes are showing a low sodium of 117. Presume from the vomiting and diarrhea. This could account for some of her general weakness and lightheaded.), re-evaluated patient, considered differential (Does sound likely to be gastroenteritis. We can rehydrate with fluids and check electrolytes and blood count. No tenderness in the abdomen on exam at this point. I do not see indication for advanced imaging.), d/w patient, d/w salesforce consultant (Hospitalist) ED course: There was a prolonged stay in the emergency department due to lack of beds available. We awaited discharges until the afternoon. During the ER course, we maintained us slow infusion of normal saline. She did not have any further vomiting while here. Recheck of the electrolytes every 4 hours initially showed us to slowly increase which is appropriate. The patient was subsequently admitted to the hospital floor Departure - Departure Disposition: 66 [facility] DC/Xfer Clinical Impression: Nausea vomiting and diarrhea, Dehydration, Acute hyponatremia, Hypokalemia Condition: Stable Record reviewed to determine appropriate education?: Yes
[2022-09-05] MEDS ORDERED: SODIUM CHLORIDE 0.9% 1,000 ML IV STA ×2 (07:39→13:54)
[2022-09-05] MEDS ORDERED: PROCHLORPERAZINE 10 MG/2 ML VIAL IVP STA (07:39)
[2022-09-05] MEDS ORDERED: FAMOTIDINE 20 MG/2 ML VIAL IVP STA (07:39)
[2022-09-05] MEDS ORDERED: LACTATED RINGERS 1,000 ML IV STA ×2 (08:02→08:48)
[2022-09-05 08:03] LABS: BASOPHILS % (AUTO) 0.4 %; EOSINOPHILS % (AUTO) 0.2 %; HCT - HEMATOCRIT 39.5 % (37.0-47.0); HGB - HEMOGLOBIN 14.5 g/dL (12.0-16.0); LYMPHOCYTES # (AUTO) 0.8 10^3/uL (1.5-3.5); LYMPHOCYTES % (AUTO) 16.4 %; MEAN CORPUSCULAR HEMOGLOBIN 32.2 pg (27.0-31.0); MEAN CORPUSCULAR HGB CONC 36.7 g/dL (32.0-36.0); MEAN CORPUSCULAR VOLUME 87.6 fL (81.0-99.0); MEAN PLATELET VOLUME 8.6 fL (7.9-10.8); MONOCYTES # (AUTO) 0.5 10^3/uL (0.0-1.0); NEUTROPHILS # (AUTO) 3.6 10^3/uL (1.5-6.6); NEUTROPHILS % (AUTO) 72.6 %; PLT - PLATELET COUNT 260 10^3/uL (130-450); RED BLOOD COUNT 4.51 10^6/uL (4.20-5.40); RED CELL DISTRIBUTION WIDTH 11.3 % (12.0-15.0)
[2022-09-05 08:24] LABS: ALBUMIN 4.4 g/dL (3.2-5.5); ALBUMIN/GLOBULIN RATIO 1.6 (1.0-2.2); BILIRUBIN,TOTAL 1.1 mg/dL (0.2-1.0); CALCIUM 8.8 mg/dL (8.5-10.3); CREATININE 0.5 mg/dL (0.4-1.0); MAGNESIUM 1.7 mg/dL (1.7-2.8); TOTAL PROTEIN 7.1 g/dL (6.7-8.2)
[2022-09-05] MEDS ORDERED: POTASSIUM CHLOR 10 MEQ/100 ML 10 MEQ/100 ML BAG IV ONE (08:50)
[2022-09-05 10:21] LABS: B. PARAPERTUSSIS- RESP PCR PAN NOT DETECTED; B. PERTUSSIS- RESP PCR PANEL NOT DETECTED; C. PNEUMONIAE- RESP PCR PANEL NOT DETECTED; CORONAVIRUS 229E-RESP PCR NOT DETECTED; CORONAVIRUS HKU1-RESP PCR NOT DETECTED; CORONAVIRUS NL63-RESP PCR NOT DETECTED; CORONAVIRUS OC43-RESP PCR NOT DETECTED; HUMAN METAPNEUMOVIRUS NOT DETECTED; INFLUENZA A- RESP PCR PANEL NOT DETECTED; INFLUENZA B - RESP PCR PANEL NOT DETECTED; M. PNEUMONIAE- RESP PCR PANEL NOT DETECTED; PARAINFLUENZA VIRUS 1 NOT DETECTED; PARAINFLUENZA VIRUS 2 NOT DETECTED; PARAINFLUENZA VIRUS 3 NOT DETECTED; PARAINFLUENZA VIRUS 4 NOT DETECTED; RHINOVIRUS/ENTEROVIRUS NOT DETECTED; RSV- RESP PCR PANEL NOT DETECTED; SARS-CoV-2 -RESP PCR PANEL NOT DETECTED
[2022-09-05 13:28] LABS: CALCIUM 8.2 mg/dL (8.5-10.3); CREATININE 0.4 mg/dL (0.4-1.0); POTASSIUM 3.3 mmol/L (3.5-5.0)
[2022-09-05] MEDS ORDERED: ONDANSETRON 4 MG/2 ML VIAL IVP PRN (17:16)
[2022-09-05] MEDS ORDERED: PROCHLORPERAZINE 10 MG/2 ML VIAL IVP PRN (17:16)
[2022-09-05] MEDS ORDERED: SODIUM CHLORIDE FLUSH 0.9% 10 ML SYRINGE IVP PRN (17:16)
--- NOTE | 2022-09-05 17:26 | HISTORY & PHYSICAL EXAMINATION ---
History of Present Illness - Admitted From Admitted From:: ED - History Obtained From History obtained from: ED provider and the patient - History of Present Illness HPI Comment/Other: This is a 72-year-old white female with a history of HTN on HCTZ and GERD on Pepcid. Patient has had 4 days of nausea, vomiting and intermittent diarrhea w ith intermittent crampy abd pain. She denied a fever. She denied blood in her stool. She said that 2 of her friends had recent gastroenteritis. She went to a walk-in clinic yesterday and impression was that she had viral gastroenteritis. She was given a prescription for Zofran tablets. She had wo oziness and nausea with slight vomiting today, and continued diarrhea, she came to the ED. She is found to have a serum sodium of 117. She is Covid neg. She has no fever. Her blood pressure is normal. Her white blood count is normal. Her exam was not consistent with a surgical abdomen. She did not have abdominal imaging done in the ED. The ED provider has reached out to the Hospitalist service to have this patient admitted for further IV saline treatment, and there is now a bed open on the Inpt side. Since her first labs, her repeat sodium level has improved to 119 after receiving LR and iv saline. Her Code status is Full Code. History - Past Medical History Cardiovascular: reports: None Respiratory: reports: None Endocrine/Autoimmune: reports: None GI: reports: None ROLL UP OPERATOR: reports: None : reports: None HEENT: reports: None Psych: reports: None Musculoskeletal: reports: Osteoarthritis Derm: reports: None MRSA Hx?: No - Past Surgical History General: reports: Cholecystectomy Ortho: reports: Other /ROLL UP OPERATOR: reports: Hysterectomy Derm: reports: Other - Family & Social History Family History: Mother: (Mom of pancreatitis, father of heart disease), Father: Family History Comment/Other: Her sister has diabetes. She had 2 natural children, a son , her daughter's healthy. Living arrangement: At home Living Situation: With spouse/s.o. Social History Notes: She never smoked cigarettes. She drinks alcohol occaisionally (5-6 per week). Uses no illicit drugs. 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 She drives a car. - Substance History Use: Uses substance without health or social issues: NONE - POLST Patient has POLST: Yes Meds/Allgy - Home Medications Home Medications: Ambulatory Orders Medication Instructions Recorded Confirmed Omeprazole [Prilosec] 20 mg PO DAILY 06/14/15 09/05/22 Aspirin [Aspirin EC] 81 mg PO DAILY 06/10/17 09/05/22 Escitalopram [Lexapro] 10 mg PO DAILY 09/05/22 09/05/22 Ondansetron Odt [Zofran Odt] 4 mg SL Q8H PRN 09/05/22 09/05/22 hydroCHLOROthiazide [Hydrodiuril] 25 mg PO HS 09/05/22 09/05/22 - Allergies Allergies/Adverse Reactions: Allergies Allergy/AdvReac Type Severity Reaction Status Date / Time oxycodone HCl * AdvReac Intermediate Nausea Verified 06/10/17 17:54 [From Percocet] omeprazole [From Prilosec] AdvReac Nausea Verified 09/05/22 07:25 Review of Systems - Constitutional Constitutional: reports: Weakness, Poor appetite - Gastrointestinal Gastrointestinal: reports: Diarrhea, Nausea, Vomiting - Neurological Neurological: reports: Other (Wooziness) - All Other Systems All Other Systems: reports: Reviewed and negative Exam - Vital Signs Reviewed Vital Signs: Yes Vital Signs: Vital Signs x48h Temp Pulse Resp BP Pulse Ox 09/05/22 15:00 60 12 184/81 H 99 09/05/22 13:00 57 L 16 174/78 H 98 09/05/22 11:00 36.6 C 87 16 135/85 H 94 09/05/22 09:27 69 10 L 166/87 H 99 - Physical Exam General Appearance: positive: No acute distress, Alert (Slightly forgetful) Eyes Bilateral: positive: Normal inspection, EOMI ENT: positive: Dry mucous membranes Neck: positive: Nml inspection, Thyroid nml, No JVD Respiratory: positive: No respiratory distress, Breath sounds nml Cardiovascular: positive: Regular rate & rhythm, No murmur Abdomen: positive: Non-tender, Nml bowel sounds, No distention Skin: positive: Warm, Dry Extremities: positive: Non-tender, No pedal edema Neurologic/Psychiatric: positive: Oriented x3 (Non-focal.) Conclusion/Plan - Problem List (1) Acute hyponatremia Conclusion/Plan: She does have mild confusion/poor memory, when examined, and this may be due to her severely low serum Na. She received IV saline starting in the ED and sodium has increased from 117 up to 119 to 121 in 6 hours. Will continue with IV saline at 100 cc an hour. Follow serum sodium every 6 hours. Plan sodium correction slowly, about 6 mEq over the next 12 hours, to prevent complications. This was explained to the pt and her daughter, Caitlin, at bedside. (2) Hypokalemia Conclusion/Plan: Will replace with K riders. Follow BMP every [address] on telemetry. (3) Nausea vomiting and diarrhea Conclusion/Plan: This was felt to be viral gastroenteritis. Will continue with IV hydration. Continue with bowel rest, and her antiemetics as needed and antacids via IV form. Will eventually start clear liquids and advance as tolerated (4) Hx of essential hypertension Conclusion/Plan: Her med list says she is takes HCTZ. I told her this would not be given for the next 3 days because she currently is dehydrated and needs fluids and this may have added to her low sodium. We will order IV hydralazine as needed for HTN - Lab Results Fish Bones: 09/05/22 07:56 09/05/22 17:08 - Other Other Results/Comments: Attestation: The patient is expected to be discharged or transferred to another facility within 96 hours: Yes.
[2022-09-05 17:31] LABS: CALCIUM 8.2 mg/dL (8.5-10.3); CREATININE 0.5 mg/dL (0.4-1.0); POTASSIUM 3.7 mmol/L (3.5-5.0)
--- NOTE | 2022-09-05 18:42 | PHARMACY PROGRESS NOTE ---
- Best Possible Medication History Admit Date and Time: 09/05/22 1716 Processed by: Nursing Medication History completed: Yes Secondary Source(s): Physician records, Insurance records As the person ultimately responsible for medication therapy, providers are able to order a medication from an existing home medication list in [facility] via the "Reconcile Routine" prior to Confirmation of that medication by manager support services. Such practice is discouraged except when the physician, in their clinical judgment, deems that a medical need exists for a medication without regard to previous use.
[2022-09-05] MEDS: hydrALAZINE INJ 20 MG/ML VIAL IVP SCH (19:10)
[2022-09-05 19:35] LABS: CALCIUM 8.2 mg/dL (8.5-10.3); CREATININE 0.4 mg/dL (0.4-1.0); POTASSIUM 3.3 mmol/L (3.5-5.0)
[2022-09-05] MEDS: FAMOTIDINE 20 MG/2 ML VIAL IVP SCH (21:09)
[2022-09-05] MEDS: SODIUM CHLORIDE 0.9% 1,000 ML IV SCH (22:09)
[2022-09-05] MEDS: SODIUM CHLORIDE FLUSH 0.9% 10 ML SYRINGE IVP SCH (23:36)
[2022-09-06 01:33] LABS: CALCIUM 8.2 mg/dL (8.5-10.3); CREATININE 0.4 mg/dL (0.4-1.0)
[2022-09-06] MEDS: hydrALAZINE INJ 20 MG/ML VIAL IVP SCH ×3 (02:56→18:59)
[2022-09-06 07:12] LABS: CALCIUM 8.6 mg/dL (8.5-10.3); CREATININE 0.5 mg/dL (0.4-1.0); POTASSIUM 3.3 mmol/L (3.5-5.0)
[2022-09-06] MEDS: SODIUM CHLORIDE FLUSH 0.9% 10 ML SYRINGE IVP SCH ×2 (07:49→19:00)
[2022-09-06] MEDS: FAMOTIDINE 20 MG/2 ML VIAL IVP SCH ×2 (07:49→21:24)
[2022-09-06] MEDS: SODIUM CHLORIDE 0.9% 1,000 ML IV SCH ×2 (07:49→07:57)
[2022-09-06] MEDS ORDERED: POTASSIUM CHLORIDE 10 MEQ CAPSULE PO ONE (11:00)
[2022-09-06 13:23] LABS: CALCIUM 8.9 mg/dL (8.5-10.3); CREATININE 0.5 mg/dL (0.4-1.0); POTASSIUM 3.2 mmol/L (3.5-5.0)
--- NOTE | 2022-09-06 13:32 | PROVIDER PROGRESS NOTE ---
Assessment/Plan - Problem List (1) Acute hyponatremia Assessment/Plan: This was caused by 4 days of vomiting and diarrhea. It is improving on iv saline hydration. She did have mild confusion/poor memory, at admission when examined, and this may be due to that severely low serum Na. She is noticably more alert today and herself says she is not as "foggy". She received IV saline starting in the ED and overnight at 100 cc an hour. Serum sodium has increased from 117 up to 119 to 121 tpo 129 today. She is not orthostatic. Will continue with IV saline but decrease the rate to 40 cc/hr and try to advance her diet. Follow serum sodium every 6 hours>> 12 hours. (2) Hypokalemia Conclusion/Plan: Despite IV riders and p.o. replacement, her serum potassium remains low when rechecked. This suggests significant potassium loss in her vomiting and diarrhea Will replace with K riders and po. Follow BMP every 6 hours>> 12 hours. Monitor on telemetry. (3) Nausea vomiting and diarrhea Conclusion/Plan: This was felt to be viral gastroenteritis. It has improved with clear liquid diet and antiemetics. She has not needed an antiemetic in a day, but still has liquidy, non-painful diarrhea. Will continue with IV hydration. Will add Imodium prn. Will advance her clear liquid diet to pureed (4) Hx of essential hypertension Conclusion/Plan: She takes only HCTZ for BP control. I told her this would not be given for the next several days because she currently is dehydrated and needs fluids and this may have added to her low sodium. We have ordered IV hydralazine as needed for HTN I recommend that she be on a different blood pressure medication going forward, and she agrees. We will start a low-dose of Amlodipine probably tomorrow morning. - Current Meds Current Meds: Current Medications Generic Name Dose Route Start Last Admin Trade Name Freq PRN Reason Stop Dose Admin Famotidine 20 mg 09/05/22 21:00 09/06/22 07:49 Famotidine 20 Mg/2 Ml Vial IVP 20 mg BID RAQUEL Administration Hydralazine HCl 10 mg 09/05/22 19:00 09/06/22 11:08 Hydralazine Inj 20 Mg/Ml Vial IVP 10 mg Q8H RAQUEL Administration Sodium Chloride 1,000 mls @ 40 mls/hr 09/06/22 07:54 09/06/22 07:57 Normal Saline 0.9% IV Not Given .Q25H RAQUEL Sodium Chloride 10 ml 09/05/22 17:16 09/05/22 21:09 Sodium Chloride Flush 0.9% 10 Ml Syringe IVP 10 ml PRN PRN Administration NEEDED PER PROVIDER ORDERS Sodium Chloride 10 ml 09/06/22 01:00 09/06/22 07:49 Sodium Chloride Flush 0.9% 10 Ml Syringe IVP 10 ml 0100,0900,1700 [facility] Administration - Lab Result Fish Bone Diagrams: 09/05/22 07:56 09/06/22 13:08 - Additional Planning My Orders: My Active Orders 09/05/22 17:16 Telemetry- [RC] Q4HR Ondansetron Inj [Zofran Inj] 4 mg IVP Q6HR PRN Prochlorperazine Inj [Compazine Inj] 10 mg IVP Q6HR PRN Sodium Chloride Flush 0.9% [Normal Saline Flush 0.9%] 10 ml IVP PRN PRN 09/05/22 17:17 Activity Orders [RC] Q2HR IO [RC] IOSHIFT Initiate Bowel Care Protocol [RC] .protocol Initiate Line Care Protocol [RC] QSHIFT Initiate Personal Care Protoco [RC] .protocol Oxygen Therapy [RC] .PRN Vital Signs [RC] Q4HR Code Status [OTHERS] Routine Condition of Patient [OTHERS] Routine DVT Prophylaxis [OTHERS] Routine 09/05/22 17:18 Daily Weight [RC] 0600 SCDs [RC] QSHIFT 09/05/22 19:00 hydrALAZINE INJ [Apresoline Inj] 10 mg IVP Q8H 09/05/22 21:00 Famotidine [Pepcid] 20 mg IVP BID 09/06/22 01:00 Sodium Chloride Flush 0.9% [Normal Saline Flush 0.9%] 10 ml IVP 0100,0900,1700 09/06/22 Breakfast Clear Liquid Diet [DIET] 09/06/22 07:54 Sodium Chloride 0.9% [Normal Saline 0.9%] 1,000 ml IV 40 mls/hr 09/06/22 10:11 Orthostatic [Vital Signs - Orthostatic] [RC] DAILY 09/06/22 18:00 BMP - BASIC METABOLIC PANEL [CHEM] Q12H 09/07/22 06:00 BMP - BASIC METABOLIC PANEL [CHEM] Q12H 09/07/22 09:00 Aspirin EC [Ecotrin] 81 mg PO DAILY Escitalopram [Lexapro] 10 mg PO DAILY 09/07/22 18:00 BMP - BASIC METABOLIC PANEL [CHEM] Q12H 09/08/22 06:00 BMP - BASIC METABOLIC PANEL [CHEM] Q12H Subjective - Subjective Patient Reports: Feeling Better (No nausea and no vomiting. She is having diarrheal stools still.) Objective Vital Signs: Vital Signs - 24 hr 09/05/22 09/05/22 09/05/22 15:00 17:00 17:55 Temperature 36.5 C 36.9 C Heart Rate 60 66 Heart Rate [ 66 Brachial] Respiratory 12 16 16 Rate Blood Pressure 184/81 H 182/78 H Blood Pressure 169/75 H [Left Brachial artery] Blood Pressure [Right Brachial artery] O2 Saturation 99 96 96 09/05/22 09/05/22 09/05/22 19:10 19:15 19:20 Temperature Heart Rate Heart Rate [ 60 70 Brachial] Respiratory Rate Blood Pressure 174/78 H Blood Pressure 153/65 H 142/59 H [Left Brachial artery] Blood Pressure [Right Brachial artery] O2 Saturation 09/05/22 09/05/22 09/05/22 19:25 19:39 19:58 Temperature Heart Rate Heart Rate [ 65 88 81 Brachial] Respiratory Rate Blood Pressure Blood Pressure 151/63 H 130/89 H 158/65 H [Left Brachial artery] Blood Pressure [Right Brachial artery] O2 Saturation 09/05/22 09/05/22 09/06/22 20:15 20:30 00:24 Temperature 37.1 C 36.9 C Heart Rate Heart Rate [ 77 84 73 Brachial] Respiratory 20 18 Rate Blood Pressure Blood Pressure 155/74 H 156/71 H 149/75 H [Left Brachial artery] Blood Pressure [Right Brachial artery] O2 Saturation 96 09/06/22 09/06/22 09/06/22 02:56 03:02 03:07 Temperature Heart Rate Heart Rate [ 88 75 Brachial] Respiratory Rate Blood Pressure 153/80 H Blood Pressure 157/66 H 150/60 H [Left Brachial artery] Blood Pressure [Right Brachial artery] O2 Saturation 09/06/22 09/06/22 09/06/22 03:12 04:16 07:34 Temperature 37.1 C 36.9 C Heart Rate Heart Rate [ 76 73 65 Brachial] Respiratory 20 18 Rate Blood Pressure Blood Pressure 151/60 H 147/64 H 158/63 H [Left Brachial artery] Blood Pressure [Right Brachial artery] O2 Saturation 96 94 09/06/22 09/06/22 11:07 11:14 Temperature 36.9 C Heart Rate Heart Rate [ 60 59 L Brachial] Respiratory 18 Rate Blood Pressure Blood Pressure 149/65 H [Left Brachial artery] Blood Pressure 162/60 H [Right Brachial artery] O2 Saturation 96 Oxygen O2 Source Room air I&O (Last 24 Hrs): Intake and Output Totals x24h 09/04/22 09/05/22 09/06/22 23:59 23:59 23:59 Intake Total 3534.000 1206.667 Balance 3534.000 1206.667 General: Alert, Oriented x3 HEENT: Atraumatic, Mucous membr. moist/pink Neck: Supple, No JVD Neuro: Alert, Non Focal Cardiovascular: Regular rate, No murmurs Respiratory: No respiratory distress, Breath sounds nml Abdomen: Normal bowel sounds, Soft, No tenderness Extremities: No clubbing, No edema - Results Results: Laboratory Results WBC 5.0 x10^3/uL (4.8-10.8) 09/05/22 07:56 RBC 4.51 10^6/uL (4.20-5.40) 09/05/22 07:56 Hgb 14.5 g/dL (12.0-16.0) 09/05/22 07:56 Hct 39.5 % (37.0-47.0) 09/05/22 07:56 MCV 87.6 fL (81.0-99.0) 09/05/22 07:56 MCH 32.2 pg (27.0-31.0) H 09/05/22 07:56 MCHC 36.7 g/dL (32.0-36.0) H 09/05/22 07:56 RDW 11.3 % (12.0-15.0) L 09/05/22 07:56 Plt Count 260 10^3/uL (130-450) 09/05/22 07:56 MPV 8.6 fL (7.9-10.8) 09/05/22 07:56 Neut # (Auto) 3.6 10^3/uL (1.5-6.6) 09/05/22 07:56 Lymph # (Auto) 0.8 10^3/uL (1.5-3.5) L 09/05/22 07:56 [place] # (Auto) 0.5 10^3/uL (0.0-1.0) 09/05/22 07:56 Eos # (Auto) 0.0 10^3/uL (0.0-0.7) 09/05/22 07:56 Baso # (Auto) 0.0 10^3/uL (0.0-0.1) 09/05/22 07:56 Absolute Nucleated RBC 0.00 x10^3/uL 09/05/22 07:56 Nucleated RBC % 0.0 /100WBC 09/05/22 07:56 Sodium 129 mmol/L (135-145) L 09/06/22 13:08 Potassium 3.2 mmol/L (3.5-5.0) L 09/06/22 13:08 Chloride 97 mmol/L (101-111) L 09/06/22 13:08 Carbon Dioxide 22 mmol/L (21-32) 09/06/22 13:08 Anion Gap 10.0 (6-13) 09/06/22 13:08 BUN 8 mg/dL (6-20) 09/06/22 13:08 Creatinine 0.5 mg/dL (0.4-1.0) 09/06/22 13:08 Estimated GFR (MDRD) 121 (>89) 09/06/22 13:08 Glucose 103 mg/dL (70-100) H 09/06/22 13:08 Calcium 8.9 mg/dL (8.5-10.3) 09/06/22 13:08 Magnesium 1.7 mg/dL (1.7-2.8) 09/05/22 07:56 Total Bilirubin 1.1 mg/dL (0.2-1.0) H 09/05/22 07:56 AST 30 IU/L (10-42) 09/05/22 07:56 ALT 32 IU/L (10-60) 09/05/22 07:56 Alkaline Phosphatase 56 IU/L (42-121) 09/05/22 07:56 Total Protein 7.1 g/dL (6.7-8.2) 09/05/22 07:56 Albumin 4.4 g/dL (3.2-5.5) 09/05/22 07:56 Globulin 2.7 g/dL (2.1-4.2) 09/05/22 07:56 Albumin/Globulin Ratio 1.6 (1.0-2.2) 09/05/22 07:56 Lipase 40 U/L (22-51) 09/05/22 07:56 Nasal Adenovirus (PCR) NOT DETECTED 09/05/22 09:15 Nasal B. parapertussis DNA (PCR) NOT DETECTED 09/05/22 09:15 Nasal Coronavir 229E PCR NOT DETECTED 09/05/22 09:15 Nasal Coronavir HKU1 PCR NOT DETECTED 09/05/22 09:15 Nasal Coronavir NL63 PCR NOT DETECTED 09/05/22 09:15 Nasal Coronavir OC43 PCR NOT DETECTED 09/05/22 09:15 Nasal Enterovir/Rhinovir PCR NOT DETECTED 09/05/22 09:15 Nasal Influenza B PCR NOT DETECTED 09/05/22 09:15 Nasal Influenza A PCR NOT DETECTED 09/05/22 09:15 Nasal Parainfluen 1 PCR NOT DETECTED 09/05/22 09:15 Nasal Parainfluen 2 PCR NOT DETECTED 09/05/22 09:15 Nasal Parainfluen 3 PCR NOT DETECTED 09/05/22 09:15 Nasal Parainfluen 4 PCR NOT DETECTED 09/05/22 09:15 Nasal RSV (PCR) NOT DETECTED 09/05/22 09:15 Nasal B.pertussis DNA PCR NOT DETECTED 09/05/22 09:15 Nasal C.pneumoniae (PCR) NOT DETECTED 09/05/22 09:15 Adrian Human Metapneumo PCR NOT DETECTED 09/05/22 09:15 Nasal M.pneumoniae (PCR) NOT DETECTED 09/05/22 09:15 Nasal SARS-CoV-2 (PCR) NOT DETECTED 09/05/22 09:15
[2022-09-06] MEDS ORDERED: LOPERAMIDE 2 MG CAPSULE PO PRN (13:43)
[2022-09-06 18:07] LABS: CALCIUM 9.1 mg/dL (8.5-10.3); CREATININE 0.5 mg/dL (0.4-1.0); POTASSIUM 3.4 mmol/L (3.5-5.0)
[2022-09-07] MEDS: hydrALAZINE INJ 20 MG/ML VIAL IVP SCH (03:58)
[2022-09-07] MEDS: SODIUM CHLORIDE FLUSH 0.9% 10 ML SYRINGE IVP SCH ×2 (03:58→08:15)
[2022-09-07 06:39] LABS: CALCIUM 8.9 mg/dL (8.5-10.3); CREATININE 0.5 mg/dL (0.4-1.0); POTASSIUM 3.2 mmol/L (3.5-5.0)
[2022-09-07] MEDS: SODIUM CHLORIDE 0.9% 1,000 ML IV SCH (08:11)
[2022-09-07] MEDS: FAMOTIDINE 20 MG/2 ML VIAL IVP SCH (08:15)
[2022-09-07] MEDS ORDERED: POTASSIUM CHLOR 10 MEQ/100 ML 10 MEQ/100 ML BAG IV SCH (09:00)
[2022-09-07] MEDS ORDERED: POTASSIUM CHLORIDE 10 MEQ CAPSULE PO ONE (09:00)
[2022-09-07] MEDS ORDERED: amLODIPine 5 MG TABLET PO SCH (09:00)
[2022-09-07] MEDS ORDERED: ESCITALOPRAM 10 MG TABLET PO SCH (09:00)
[2022-09-07] MEDS ORDERED: ASPIRIN EC 81 MG TABLET PO SCH (09:00)
[2022-09-07 11:21] VITALS: BP 136/73
--- NOTE | 2022-09-07 11:54 | Discharge Plan ---
Discharge Plan Problem Reviewed?: Yes Disposition: Home, Self Care Condition: Fair Prescriptions: amLODIPine [Norvasc] 2.5 mg PO DAILY #30 tab Diet: Soft (please ADD salt to your food) Activity Restrictions: Activity as Tolerated Shower Restrictions: No Driving Restrictions: No Instruction Topics: Gastroenteritis Viral Ch Health Concerns: You were hospitalized because of nausea, vomiting and diarrhea that caused dehydration and a dangerously low serum sodium level. You needed IV saline to replace your sodium levels. You were put on a light diet. The sodium level has improved. You are being discharged today and advised to slowly advance your diet as tolerated. Please use salt liberally for the next 2-3 days. Your BP medicine HCTZ is felt to not be a good choice for treating your blood pressure. You have been started here on a new BP medication called Amlodipine and an electronic prescription for this was sent to your [facility] pharmacy in [place]. Plan of Treatment: As above. Care Goals: Improvement in symptoms and stabilization are the goals. Assessment: The patient understands and is agreeable with the plan. Additional Instructions or Follow Up instructions: You need to have a BMP blood test in about 3 days. Your PCP needs to order this, so that she can review the result. I have left a message with her office to order this. You should plan to see your primary care provider in the next 1 to 2 weeks for hospital follow-up visit. No Smoking: If you smoke, Please STOP! Call for help. Follow-up with: Kelin Mcelroy ARNP [Primary Care Provider] -
[2022-09-07 12:15] LABS: CALCIUM 9.2 mg/dL (8.5-10.3); CREATININE 0.5 mg/dL (0.4-1.0); POTASSIUM 3.6 mmol/L (3.5-5.0)
--- NOTE | 2022-09-07 13:33 | DISCHARGE SUMMARY ---
Discharge Summary Admit Date: 09/05/22 Discharge Date: 09/07/22 Discharging Provider: Karol Cortez MD Primary Care Provider: Chary Mcelroy NP Condition at Discharge: Fair Discharge Disposition: 01 Home, Self Care - HPI History of Present Illness: This is a 72-year-old white female with a history of HTN on HCTZ and GERD on Pepcid. Patient has had 4 days of nausea, vomiting and intermittent diarrhea with intermittent crampy abd pain. She denied a fever. She denied blood in her stool. She said that 2 of her friends had recent gastroenteritis. She went to a walk-in clinic yesterday with these complaints and impression was that she had viral gastroenteritis. She was given a prescription for Zofran tablets. She had new wooziness and nausea with slight vomiting today, and continued diarrhea, she came to the ED. She is found to have a serum sodium of 117. She is Covid neg. She has no fever. Her blood pressure is normal. Her white blood count is normal. Her exam was not consistent with a surgical abdomen. She did not have abdominal imaging done in the ED. The ED provider has reached out to the Hospitalist service to have this patient admitted for further IV saline treatment, and there is now a bed open on the Inpt side. Since her first labs, her repeat sodium level has improved to 119 after receiving LR and iv saline in the ED. Her Code status is Full Code. - HOSPITAL COURSE Hospital Course: (1) Hyponatremia This was caused by 4 days of vomiting and diarrhea. It improved with iv saline hydration. She did have mild confusion/poor memory, at admission when examined, and this was likely due to that severely low serum Na. She was noticably more alert and herself said she was not as "foggy". She received IV saline starting in the ED and overnight at 100 cc an hour. Serum sodium has increased from 117 up to 119 to 121 to 129 today. She was not orthostatic. We decreased the iv rate and tried to advance her diet. Her HCTZ was stopped. I called Kelin Mcelroy NP's office and gave a message that the pt ne eds a BMP in 4 days and an office appt in 1 week. (2) Hypokalemia She required multiple IV K riders and p.o. replacement. This suggested significant potassium loss in her vomiting and diarrhea (3) Nausea vomiting and diarrhea This was felt to be viral gastroenteritis. It improved with antiemetics and a clear liquid diet that was slowly advanced to pureed. A BRAT diet was still advised. (4) Hx of essential hypertension She took only HCTZ for BP control. This was stopped due to dehydration and needing iv fluid replacement. I recommend that she be on a different blood pressure medication going forward, and she agreed. She was started on a low-dose of Amlodipine and discharged on this. - ALLERGIES Allergies/Adverse Reactions: Allergies Allergy/AdvReac Type Severity Reaction Status Date / Time oxycodone HCl * AdvReac Intermediate Nausea Verified 06/10/17 17:54 [From Percocet] omeprazole [From Prilosec] AdvReac Nausea Verified 09/05/22 07:25 - MEDICATIONS Home Medications: Ambulatory Orders Medication Instructions Recorded Confirmed Omeprazole [Prilosec] 20 mg PO DAILY 06/14/15 09/05/22 Aspirin [Aspirin EC] 81 mg PO DAILY 06/10/17 09/05/22 Escitalopram [Lexapro] 10 mg PO DAILY 09/05/22 09/05/22 Ondansetron Odt [Zofran Odt] 4 mg SL Q8H PRN 09/05/22 09/05/22 amLODIPine [Norvasc] 2.5 mg PO DAILY #30 tab 09/07/22 - PHYSICAL EXAM AT DISCHARGE General Appearance: positive: No acute distress, Alert Eyes Bilateral: positive: Normal inspection, EOMI ENT: positive: ENT inspection nml, No signs of dehydration Neck: positive: Nml inspection, No JVD Respiratory: positive: No respiratory distress, Breath sounds nml Cardiovascular: positive: Regular rate & rhythm, No murmur Abdomen: positive: Non-tender, Nml bowel sounds, No distention Skin: positive: Warm, Dry Extremities: positive: Non-tender, No pedal edema Neurologic/Psychiatric: positive: Oriented x3, Motor nml - LABS Result Diagrams: 09/05/22 07:56 09/07/22 11:59 - FOLLOW UP Follow Up: On the day of discharge, I called Kelin Mcelroy NP's office, and gave a message to staff that the patient needs a BMP done in about 4 days and an office appt in 1 week. - TIME SPENT Time Spent in Discharge (Minutes): 45
== END 2022-09-07 14:21 | disposition home or self-care (01) | DRG 641 ==
LOC: ED 07:16 → MS2 17:16
PROVIDERS: ADMIT Internal Medicine; ATTEND Internal Medicine
DX: E87.1 Hypo-osmolality and hyponatremia (principal); E86.0 Dehydration; E87.6 Hypokalemia; R11.2 Nausea with vomiting, unspecified; R19.7 Diarrhea, unspecified; Z20.822 Contact with and (suspected) exposure to COVID-19; R42 Dizziness and giddiness; R53.1 Weakness; I10 Essential (primary) hypertension; K21.9 Gastro-esophageal reflux disease without esophagitis; R41.0 Disorientation, unspecified
CPT/HCPCS: 36415; 80048; 80053; 83690; 83735; 85025; 87633; 96361; 96374; 99284; 99285; A9270; J7120

== ENCOUNTER 2023-12-30 12:11 | Emergency (ER) | payer MEDICARE, OTHER ==
[2023-12-30 12:18] VITALS: BP 200/90; O2SAT 98
[2023-12-30 13:47] LABS: BASOPHILS # (AUTO) 0.1 10^3/uL (0.0-0.1); BASOPHILS % (AUTO) 0.9 %; EOSINOPHILS # (AUTO) 0.2 10^3/uL (0.0-0.7); EOSINOPHILS % (AUTO) 1.9 %; HCT - HEMATOCRIT 44.1 % (37.0-47.0); HGB - HEMOGLOBIN 14.5 g/dL (12.0-16.0); LYMPHOCYTES # (AUTO) 1.4 10^3/uL (1.5-3.5); LYMPHOCYTES % (AUTO) 18.4 %; MEAN CORPUSCULAR HEMOGLOBIN 31.7 pg (27.0-31.0); MEAN CORPUSCULAR HGB CONC 32.9 g/dL (32.0-36.0); MEAN CORPUSCULAR VOLUME 96.3 fL (81.0-99.0); MEAN PLATELET VOLUME 8.7 fL (7.9-10.8); MONOCYTES # (AUTO) 0.5 10^3/uL (0.0-1.0); NEUTROPHILS # (AUTO) 5.5 10^3/uL (1.5-6.6); NEUTROPHILS % (AUTO) 71.3 %; PLT - PLATELET COUNT 299 10^3/uL (130-450); RED BLOOD COUNT 4.58 10^6/uL (4.20-5.40); RED CELL DISTRIBUTION WIDTH 12.5 % (12.0-15.0); WHITE BLOOD COUNT 7.7 x10^3/uL (4.8-10.8)
[2023-12-30 14:01] LABS: ALBUMIN 4.4 g/dL (3.2-5.5); ALBUMIN/GLOBULIN RATIO 1.7 (1.0-2.2); BILIRUBIN,TOTAL 0.4 mg/dL (0.2-1.0); CALCIUM 9.8 mg/dL (8.5-10.3); CREATININE 0.7 mg/dL (0.6-1.3); POTASSIUM 4.2 mmol/L (3.5-4.5)
--- NOTE | 2023-12-30 14:31 | ED Physician Documentation ---
PD HPI ABD PAIN - Stated complaint Stated Complaint: UPPER ABD PX - Chief complaint Chief Complaint: Abd Pain - Additional information Additional information: 73-year-old woman with remote cholecystectomy and oophorectomy presents for resolved episode of upper abdominal pain. Around 11 AM this morning she developed severe upper abdominal pain that was nonradiating. It started while vacuuming. No nausea, chest pain, trouble breathing with it. It lasted for a few hours and is now better. She has had a sore throat for a few weeks. PD PAST MEDICAL HISTORY - Past Medical History Past Medical History: Yes Cardiovascular: Hypertension Respiratory: None Neuro: None Endocrine/Autoimmune: None GI: None FOOD CONSULTANT: None : None HEENT: None Psych: None Musculoskeletal: Osteoarthritis Derm: None - Past Surgical History Past Surgical History: Yes General: Cholecystectomy Ortho: Other /FOOD CONSULTANT: Hysterectomy Derm: Other - Present Medications Home Medications: Ambulatory Orders Medication Instructions Recorded Confirmed Omeprazole [Prilosec] 20 mg PO DAILY 06/14/15 09/05/22 Aspirin [Aspirin EC] 81 mg PO DAILY 06/10/17 09/05/22 Escitalopram [Lexapro] 10 mg PO DAILY 09/05/22 09/05/22 Ondansetron Odt [Zofran Odt] 4 mg SL Q8H PRN 09/05/22 09/05/22 amLODIPine [Norvasc] 2.5 mg PO DAILY #30 tab 09/07/22 - Allergies Allergies/Adverse Reactions: Allergies Allergy/AdvReac Type Severity Reaction Status Date / Time oxycodone HCl * AdvReac Intermediate Nausea Verified 12/30/23 12:15 [From Percocet] omeprazole [From Prilosec] AdvReac Nausea Verified 12/30/23 12:15 - Social History Does the pt smoke?: No Smoking Status: Never smoker Does the pt drink ETOH?: Yes Does the pt have substance abuse?: No - Immunizations Immunizations are current?: Yes - POLST Patient has POLST: Yes PD ED PE NORMAL - Vitals Vital signs reviewed: Yes - General General: Alert and oriented X 3, No acute distress - HEENT HEENT: PERRL, EOMI, Other (Surgically absent tonsils, mild retropharyngeal redness but no swelling, normal phonation.) - Cardiac Cardiac: RRR, No murmur - Respiratory Respiratory: No respiratory distress, Clear bilaterally - Abdomen Abdomen: Normal bowel sounds, Soft, Non tender, Other (Bedside ultrasound demonstrates no AAA.) Results - Vitals Vitals: Vital Signs - 24 hr 12/30/23 12:15 Temperature 36.8 C Heart Rate 60 Respiratory 16 Rate Blood Pressure 200/90 H O2 Saturation 98 Oxygen O2 Source Room air - EKG (time done) Twelve-lead EKG done at 1219 hrs. discloses normal sinus rhythm with a rate of 57, probable LVH, no ST or T wave changes. EKG releavant findings:: EKG personally interpreted by author of this note. Relevant findings are: Computer interpretation: Agree with computer - Labs Labs: Laboratory Tests 12/30/23 12/30/23 13:43 13:43 WBC 7.7 RBC 4.58 Hgb 14.5 Hct 44.1 MCV 96.3 MCH 31.7 H MCHC 32.9 RDW 12.5 Plt Count 299 MPV 8.7 Neut # (Auto) 5.5 Lymph # (Auto) 1.4 L [place] # (Auto) 0.5 Eos # (Auto) 0.2 Baso # (Auto) 0.1 Absolute Nucleated RBC 0.00 Nucleated RBC % 0.0 Sodium 137 Potassium 4.2 Chloride 101 Carbon Dioxide 29 Anion Gap 7.0 BUN 11 Creatinine 0.7 Estimated GFR (MDRD) 82 L Glucose 173 H Calcium 9.8 Total Bilirubin 0.4 AST 20 ALT 18 Alkaline Phosphatase 83 Total Protein 7.0 Albumin 4.4 Globulin 2.6 Albumin/Globulin Ratio 1.7 Lipase 37 PD Medical Decision Making - ED course ED course: 73-year-old woman with resolved upper abdominal pain, labs showing a normal CBC and CMP only remarkable for mild hyperglycemia for which follow-up was advised. I do not think imaging is necessary given that pain has resolved but she was given close return precautions. Departure - Departure Disposition: 01 Home, Self Care Clinical Impression: Abdominal pain Qualifiers: Abdominal location: epigastric Qualified Code(s): R10.13 - Epigastric pain Condition: Good Instructions: ED Abdominal Pain Female Non-Specific Abdominal Pain Comments: You were seen today for an resolved episode of upper abdominal pain that I think is probably a gastritis attack. You should double your Prilosec, morning and night for a few days. Return if pain recurs. Your blood sugar was up a bit today at 173, mention this to your doctor in follow-up. Forms: PCP List
== END 2023-12-30 14:51 | disposition home or self-care (01) ==
LOC: ED 12:11
DX: R10.13 Epigastric pain (principal); R73.9 Hyperglycemia, unspecified; I10 Essential (primary) hypertension; Z79.82 Long term (current) use of aspirin; Z79.899 Other long term (current) drug therapy
CPT/HCPCS: 36415; 80053; 83690; 85025; 93005; 99283

== ENCOUNTER 2024-01-08 08:00 | Outpatient (CLI) | payer MEDICARE, OTHER ==
--- NOTE | 2024-01-09 12:26 | XRAY Report ---
PROCEDURE: Ankle 3+V RT INDICATIONS: SPRAIN OF RIGHT ANKLE TECHNIQUE: 3 views of the ankle were acquired. COMPARISON: None. FINDINGS: Bones: No fractures or dislocations. Ankle mortise is normally aligned. No suspicious bony lesions . Soft tissues: Lateral malleoli edema is present. Achilles tendon appears normal. IMPRESSION: Lateral malleolar edema. No visualized acute fracture or dislocation. However, occult injury cannot b e excluded. Recommend short interval imaging follow-up in 7-10 days as clinically indicated for addit ional evaluation. Reviewed by: Talya Albert MD on 01/09/2024 12:24 PM PST Approved by: Talya Albert MD on 01/09/2024 12:24 PM PST Station ID: [id number]
== END 2024-01-08 23:59 | disposition home or self-care (01) ==
LOC: DI.S 08:00
PROVIDERS: ATTEND Emergency Medicine
DX: S93.491A Sprain of other ligament of right ankle, initial encounter (principal); R60.0 Localized edema

== ENCOUNTER 2024-06-23 08:49 | Outpatient (CLI) | payer MEDICARE, OTHER ==
--- NOTE | 2024-06-24 07:44 | Mammography Report ---
BILATERAL DIGITAL SCREENING MAMMOGRAM 3D/2D: 06/23/2024 CLINICAL: Routine screening. Comparison is made to exams dated: 06/07/2022 mammogram and 07/18/2017 mammogram - [facility]. There are scattered areas of fibroglandular density in both breasts (category b / 25%-50% glandular t issue). No significant masses, calcifications, or other findings are seen in either breast. There has been no significant interval change. IMPRESSION: NEGATIVE There is no mammographic evidence of malignancy. A 1 year screening mammogram is recommended. Based on the Tyrer Cuzick model (a risk assessment model) the patient's lifetime risk is 4.4% and her 10 year risk is 4.4%. According to the ACR, ACS, and NCCN guidelines, an annual breast MRI exam bert g with mammogram is recommended if the patient's lifetime risk is 20% or greater. This exam was interpreted at Station ID: [id number]. NOTE: For mammograms, a report in lay terms will be sent to the patient. Approximately 15% of breast malignancies will not be visualized mammographically. In the management of a palpable breast mass, a negative mammogram must not discourage biopsy of a clinically suspicious lesion. Electronically Signed By: Kevin [email or web address]/[email or web address]:06/23/2024 10:16:35 letter sent: No_Letter ACR BI-RADS Category 1: Negative 3341F PARENCHYMAL PATTERN: (A) - The breast(s) demonstrate(s) scattered fibroglandular densities. BI-RADS CATEGORY: (1) - 1 RECOMMENDATION: (ANNUAL) - Recommend routine annual screening mammography. [id number] 1 year screening LATERALITY: (B)
== END 2024-06-23 08:50 | disposition home or self-care (01) ==
LOC: DI.S 08:49
PROVIDERS: ATTEND Registered Nurse
DX: Z12.31 Encounter for screening mammogram for malignant neoplasm of breast (principal); R92.323 Mammographic fibroglandular density, bilateral breasts